=== PATIENT | male | born 1930 | race Hispanic/Latino ===

== ENCOUNTER 2016-11-30 09:13 | Emergency (ER) | payer MEDICARE ==
[2016-11-30 10:01] LABS: #Basophils 0.1 thou/uL (0.0-0.2); #Eosinphils 0.5 thou/uL (0.0-0.7); #Lymphocytes 2.5 thou/uL (1.20-3.40); #Monocytes 0.9 thou/uL (0.11-0.59); #Neutrophils 6.9 thou/uL (1.40-6.50); %Basophils 0.8 % (0.0-1.0); %Lymphocytes 22.9 % (21.0-51.0); %Monocytes 8.3 % (0.0-10.0); %Neutrophils 63.1 % (42.0-75.0); Hemoglobin 15.7 g/dL (14.0-18.0); Mean Corpuscular HGB CONC 35.8 g/dL (32.0-36.0); Mean Corpuscular Hemoglobin 33.7 pg (27.0-31.0); Mean Corpuscular Volume 94.1 fl (80.0-94.0); Mean Platelet Volume 6.6 fL (7.4-10.4); Platelet Count 152 thou/uL (130-400); RBC Distribution Width 11.8 % (11.5-14.5); Red Blood Cell (RBC) Count 4.67 mill/uL (4.70-6.10); White Blood Cell (WBC) Count 10.9 thou/uL (4.8-10.8)
[2016-11-30 10:04] LABS: ALT (SGPT) 17 U/L (8-55); AST (SGOT) 19 U/L (5-34); Albumin 4.1 g/dL (3.4-4.8); Alkaline Phosphatase 71 U/L (40-150); Anion Gap 14 mmol/L (10-20); BUN (Urea Nitrogen) 8 mg/dL (8.4-25.7); Bilirubin, Total 0.8 mg/dL (0.2-1.2); Calc. Creatinine Clearance 0 mL/min (70-130); Calcium 9.6 mg/dL (7.8-10.44); Carbon Dioxide 25 mmol/L (23-31); Chloride 104 mmol/L (98-107); Estimated GFR-MDRD 68; Glucose 114 mg/dL (83-110); Potassium 3.5 mmol/L (3.5-5.1); Protein, Total 8.1 g/dL (5.8-8.1); Sodium 139 mmol/L (136-145)
[2016-11-30 10:07] LABS: INR-International Normal Ratio 1.1; PTT 45.6 SEC (22.9-36.1); Prothrombin Time 14.4 SEC (12.0-14.7)
[2016-11-30 10:48] LABS: Bilirubin Negative (Negative); Blood, Urine Trace (Negative); Clarity Clear (Clear); Glucose, Urine (Dipstick) Negative (Negative); Leukocyte Negative (Negative); Nitrite Negative (Negative); Protein, Urine (Dipstick) Negative (Neg-Trace); Urobilinogen 0.2 mg/dL (0.2-1.0); pH, Urine 6.5 (5.0-9.0)
[2016-11-30 10:55] LABS: Bacteria/HPF Rare-Few HPF (None Seen); RBC/HPF 0-3 HPF (0-3); Squamous Epithelial 0-3 HPF (0-3); WBC/HPF 0-3 HPF (0-3)
[2016-11-30] MEDS ORDERED: Nitroglycerin 50 MG/250 ML BOT 250 ML ONE (11:12)
[2016-11-30] MEDS ORDERED: Fentanyl 100 MCG/2 ML VIAL ONE (11:13)
--- NOTE | 2016-11-30 20:54 | CT ---
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 There was no sign of acute bleeding today. On scan 13, there was an area of thickening just inside t he inner table of the left frontal bone. There is no evidence of mass effect. The finding is probabl y more likely due to residual thickening from the patient's old subdural hematoma, however, in view of his current symptoms and his history, if there is any neurological change at all, he should be pr omptly rescanned for a second look at this area. Otherwise, one sees diffuse severe atrophy with kelsey e moderate compensatory dilatation of the ventricles. Chronic ischemic changes are seen throughout t he deep white matter. There were no findings strongly suggestive of acute stroke. The calvarium appe ared intact. IMPRESSION: 1. Atrophy and chronic ischemic changes. 2. Small focal area of thickening just inside the inner table of the left frontal bone, probabl y old residual, but caution is advised given the symptoms and history. Findings discussed with Dr. Rodrigeuz, at 1015 on 11/30/16. POS: HOME
== END 2016-11-30 11:55 | disposition short-term general hospital (02) ==
LOC: BURERS 09:13
DX: I10 Essential (primary) hypertension (principal); E03.9 Hypothyroidism, unspecified; Z79.899 Other long term (current) drug therapy
CPT/HCPCS: 36415; 70450; 80053; 81003; 81015; 85025; 85610; 85730; 94760; 96365; 96375; J3010

== ENCOUNTER 2016-12-17 20:53 | Emergency (ER) | payer MEDICARE ==
--- NOTE | 2016-12-18 00:26 | CT ---
CT OF THE BRAIN WITHOUT CONTRAST 12/17/16 COMPARISON: Comparison is made with a 12/01/16 study. There has been no significant interval change. No acute bleeding was seen. On one slice there was th e barest hint of a thin left frontal subdural collection that has been seen on a prior MRI. Without the benefit of the prior studies, one would probably dismiss it as artifact, as it is very hard to s ee today. No new bleeding is present. Atrophy, compensatory dilatation of the ventricles and deep wh ite matter ischemia are present as usual. 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 There was no findings of acute stroke. IMPRESSION: No acute intracranial findings. Changes as noted above. POS: HOME
== END 2016-12-17 21:43 | disposition home or self-care (01) ==
LOC: BURERS 20:53
DX: S00.93XA Contusion of unspecified part of head, initial encounter (principal); E03.9 Hypothyroidism, unspecified; F03.90 Unspecified dementia, unspecified severity, without behavioral disturbance, psychotic disturbance, mood disturbance, and anxiety; I10 Essential (primary) hypertension; Z79.899 Other long term (current) drug therapy; W07.XXXA Fall from chair, initial encounter
CPT/HCPCS: 70450